=== PATIENT | female | born 1960 | race Caucasian/White ===

== ENCOUNTER 2019-08-07 21:39 | Emergency (ER) | payer BC ==
[2019-08-07] MEDS ORDERED: DIPHTH,PERTUSS(ACELL),TET 0.5 ML DISP.SYRIN IM ONE ×2 (21:47→21:49)
[2019-08-07 21:48] VITALS: BP 118/78; PULSE 73; TEMP 97.7; BMI 22.8
--- NOTE | 2019-08-07 21:58 | PDOC ---
Documentation entered by Stiven Ryan SCRIBE, acting as scribe for Kiel Mix MD. Kiel Mix MD: This documentation has been prepared by the carlineeConnor Aiswarya, SCRIBE, under my direction and personally reviewed by me in its entirety. I confirm that the documentation accurately reflects all work, treatment, procedures, and medical decision making performed by me. History of Present Illness - General Chief Complaint: Tetanus,Booster Stated Complaint: INJURY WITH DAQUAN SAW TO RIGHT HAND Time Seen by Provider: 08/07/19 21:47 History Source: Patient Exam Limitations: No Limitations - History of Present Illness Initial Comments: 08/07/19 21:57 This is a 59-year-old female who is not up-to-date on her tetanus and is requesting a tetanus shot. Patient said she got a small abrasion from a daquan saw so wants a tetanus shot. Patient denies any other complaints. Allergies: as per nursing notes Past Medical History: none Social history: Lives with family. No smoking. No alcohol. No illicit drugs. Surgical history: None General: No fevers or chills, no weakness, no weight loss HEENT: No change in vision. No sore throat,. No ear pain CardioVascular: no chest discomfort. No shortness of breath Respiratory:No cough, or wheezing. Gastrointestinal: no nausea, vomiting, diarrhea or constipation, No rectal bleeding Genitourinary: No dysuria, hematuria, or frequency Musculoskeletal: No joint or muscle pain or swelling Neurologic: No headache, vertigo, dizziness or loss of consciousness Psychiatric: nor depression Skin: No rashes or easy bruising Endocrine: no increased thirst or abnormal weight change Allergic: no skin or latex allergy All other systems reviewed and normal GENERAL: The patient is awake, alert, and fully oriented, in no acute distress. HEAD: Normal with no signs of trauma. EYES: Pupils equal, round and reactive to light, extraocular movements intact, sclera anicteric, conjunctiva clear. EXTREMITIES:atraumatic, Normal range of motion, no edema. There is no visible injury NEUROLOGICAL: Normal speech, normal gait. PSYCH: Normal mood, normal affect. SKIN: Warm, Dry, normal turgor, no rashes or lesions noted. Assessment and plan: This is a 59-year-old female who is here for tetanus shot tetanus was administered and patient discharged Past History - Past Medical History Allergies/Adverse Reactions: Allergies Allergy/AdvReac Type Severity Reaction Status Date / Time sulfur [From Sulfur-8] Allergy Verified 08/07/19 21:41 Home Medications: Ambulatory Orders NK [No Known Home Medication] 08/07/19 COPD: No Other medical history: DENIES - Psycho Social/Smoking Cessation Hx Smoking History: Never smoked Have you smoked in the past 12 months: No Information on smoking cessation initiated: No Hx Alcohol Use: No Drug/Substance Use Hx: No *Physical Exam - Vital Signs Last Vital Signs Temp Pulse Resp BP Pulse Ox 97.7 F 73 16 118/78 100 08/07/19 21:42 08/07/19 21:42 08/07/19 21:42 08/07/19 21:42 08/07/19 21:42 ED Treatment Course - Medications Given in the ED: ED Medications Discontinued Medications Generic Name Dose Route Start Last Admin Trade Name Freq PRN Reason Stop Dose Admin Diphtheria/Tetanus/Acell Pertussis 0.5 ml 08/07/19 21:47 08/07/19 21:51 Boostrix - IM 08/07/19 21:48 0.5 ml ONCE ONE Administration Discharge - Discharge Information Problems reviewed: Yes Clinical Impression/Diagnosis: Need for tetanus booster Condition: Stable Disposition: HOME - Admission No - Follow up/Referral - Patient Discharge Instructions Additional Instructions: Return to the emergency department immediately with ANY new, persistent or worsening symptoms. Continue any medications as previously prescribed by your physician. You should follow up with your primary doctor as soon as possible regarding today's emergency department visit. . Please make sure your doctor reviews the results of your emergency evaluation. Thank you for coming to the Emergency Department today for your care. It was a pleasure to see you today. Please note that your evaluation is INCOMPLETE until you follow-up with your doctor. - Post Discharge Activity
== END 2019-08-07 22:01 | disposition home or self-care (01) ==
LOC: FER 21:39
PROC: 3E0234Z Introduction of Serum, Toxoid and Vaccine into Muscle, Percutaneous Approach (ICD-10-PCS; principal; 2019-08-07)
DX: Z23 Encounter for immunization (principal); Z88.8 Allergy status to other drugs, medicaments and biological substances
CPT/HCPCS: 90715; 99281-25